=== PATIENT | female | born 1995 | race Caucasian/White ===

== ENCOUNTER 2024-02-28 10:29 | Emergency (ER) | payer MEDICAID, SELFPAY ==
[2024-02-28 10:55] VITALS: BP 128/85; PULSE 99; RESP 19; TEMP 37; O2SAT 98; BMI 32.9
--- NOTE | 2024-02-28 10:58 | XR_ITS ---
Examination: CT brain head without contrast. 2-D sagittal coronal reconstructions Date and time of exam:February 28, 2024 1105 hours INDICATIONS: Syncopal episode beginning 2 days ago followed by head pain CTDI: vol (mGy):46.3 DLP: (mGycm):1029 Technique: Multiple CT axial sections of the brain have been obtained, 5 mm slice thickness. Contrast has not been administered. 2-D sagittal, coronal reconstructions have been obtained Low dose protocols were performed. One or more of the following dose reduction techniques were used; automated exposure control, adjustment of the mA and/or KV according to patient size, use of iterative reconstruction technique. Findings: No significant ventricular enlargement. Intra-axial or extra-axial hemorrhage density is not seen. No mass effect or midline shift Basal cisterns are not remarkable. Fourth ventricle is midline. Cranial vault intact. Impression: Negative for acute hemorrhage, mass effect or midline shift
--- NOTE | 2024-02-28 12:26 | EDNOTE_ITS ---
ED Headache RME/HPI General Chief Complaint: Headache Stated Complaint: Headache from head injury Time Seen by Provider: 02/28/24 10:32 Arrival date/time: 02/28/24 10:29 28-year-old female presents emergency department complaints of fall while in the shower 2 days ago patient reports headache and reports no nausea or vomiting no weakness no chest pain or shortness of breath Limitations: no limitations Related Data Previous Rx's ?Medication ?Instructions ?Recorded ibuprofen 600 mg tablet 600 mg PO Q6H #30 tabs 02/28/24 Allergies Allergy/AdvReac Type Severity Reaction Status Date / Time No Known Allergies Allergy Verified 02/28/24 10:34 Review of Systems Review of Systems Systems Reviewed: All systems reviewed, normal except as documented Constitutional Constitutional: Reports system reviewed and no additional complaints, except as documented, Denies fever(s) and Reports headache(s) Eyes Eyes: Reports system reviewed and no additional complaints, except as documented and Denies blurry vision ENT Ears, Nose, Mouth, and Throat: Reports system reviewed and no additional complaints, except as documented, Reports headache(s), Denies nasal congestion and Denies nasal discharge Cardiovascular Cardiovascular: Reports system reviewed and no additional complaints, except as documented, Denies chest pain and Denies dyspnea Respiratory Respiratory: Reports system reviewed and no additional complaints, except as documented, Denies chest congestion, Denies cough and Denies dyspnea Gastrointestinal Gastrointestinal: Reports system reviewed and no additional complaints, except as documented and Denies abdominal pain Integumentary/Breasts Skin/Breast: Reports system reviewed and no additional complaints, except as documented and Denies rash Neurologic Neurologic: Reports system reviewed and no additional complaints, except as documented, Reports as per HPI and Reports headache(s) Past Medical History Past Medical History NEUROLOGIC: Negative Neurological Disorders CARDIAC: Negative Cardiac Disorders ED Exam General Limitations: Present no limitations General appearance: Present alert and in no apparent distress Head Head exam: Present atraumatic Eye Eye exam: Present normal appearance, PERRL and EOMI ENT ENT exam: Present normal exam, normal oropharynx and mucous membranes moist Neck Neck exam: Present normal inspection, full ROM and trachea midline Chest Chest inspection: Present normal inspection and symmetric chest wall rise Respiratory Respiratory exam: Present normal lung sounds bilaterally Cardiovascular Cardiovascular exam: Present regular rate, normal rhythm and normal heart sounds Abdominal Exam Abdominal exam: Present soft and normal bowel sounds Extremities Exam Extremities exam: Present normal inspection and full ROM Back Exam Back exam: Present normal inspection and full ROM Neurological Exam Neurological exam: Present alert, oriented X3, CN II-XII intact, normal gait and reflexes normal; Absent motor sensory deficit Psychiatric Psychiatric exam: Present normal affect and normal mood Skin Skin exam: Present warm, dry, intact and normal color Course Quality Measures none Orders Category Date Time Status CT head/brain wo con Stat Exams 02/28/24 10:58 Completed Vital Signs Vital signs: Vital Signs Temperature 98.6 F 02/28/24 10:55 Pulse Rate 99 02/28/24 10:55 Respiratory Rate 19 02/28/24 10:55 Blood Pressure 128/85 H 02/28/24 10:55 Pulse Oximetry (%) 98 02/28/24 10:55 Oxygen Delivery Method Room Air 02/28/24 10:55 O2 saturation 98% room air within normal limits Headache MDM Narrative MDM Narrative:: 28-year-old female presents emergency department complaints of fall while in the shower 2 days ago patient reports headache and reports no nausea or vomiting no weakness no chest pain or shortness of breath On exam patient well-appearing patient does not appear ill or toxic in no acute distress CT scan of the head obtained no acute emergent findings noted Patient discharged home in no distress to follow-up with primary care doctor in the next 24 to 48 hours and for any worsening symptoms to return to the ER immediately Patient data External records reviewed:: [facility] previous records Clinical information provided by:: patient Social determinants that could affect healthcare access:: none Patient has the following chronic illnesses:: None How is presenting disease/condition affected by chronic disease/condition?: no chronic disease Evaluation data The following diagnostics were reviewed and interpreted by me:: radiology exam(s) Lab and/or radiology exams considered but not ordered:: Radiology obtain Interpretation Summary: Reviewed by me Medications / Prescriptions Medications or Prescriptions considered but not ordered:: Given Medication administrations:: Given Consultations Consultation(s) initiated? (list below): No Diagnosis Differential diagnosis headache: migraine and tension headache Most likely diagnosis given after review of the tests above:: Headache Admission Indicated Admission indicated?: not indicated Admission Request Was there a request for admission?: No Disposition Plan Disposition Plan: Discharge Discharge Attestation Discharge Attestation: The patient and all family members were given an opportunity to ask questions and understood the discharge instructions. Discharge instructions specifically effects, indications for sooner follow up or return to the emergency department, and the expected course of current diagnosis. Patient condition: Stable Discharge Plan Plan Patient Disposition: HOME (Self Care) Disposition Comment: Stable Prescriptions/Referrals Prescriptions/Med Rec: New ibuprofen 600 mg tablet 600 mg PO Q6H Qty: 30 0RF Referrals: Kirsty Haley FNP [Primary Care Provider] - 02/29/24 Problem List Clinical Impression: Headache Patient/Caregiver Discharge Instructions Education Materials: Self-Care for Headaches Additional Instructions: Please follow up with your primary care doctor in the next 24-48hrs for any worsening symptoms return here immediately Print Language: Serbian Stand Alone Forms: Rhiannon Award Info., Work/School Release, Patient Portal Info Letter INDER/SHAHEEN Supervising Physician INDER/SHAHEEN Supervising Physician: Dr Roberts
== END 2024-02-28 12:49 | disposition home or self-care (01) ==
PROVIDERS: Emergency Provider Emergency Medicine; PCP Registered Nurse Community Health
DX: S09.90XA Unspecified injury of head, initial encounter (principal); W18.2XXA Fall in (into) shower or empty bathtub, initial encounter; Y93.E1 Activity, personal bathing and showering
CPT/HCPCS: 70450; 99284

== ENCOUNTER 2025-02-26 20:01 | Emergency (ER) | payer MEDICAID, SELFPAY ==
[2025-02-26 20:03] VITALS: BMI 31.6
[2025-02-26 20:17] VITALS: BP 118/75; PULSE 82; RESP 20; TEMP 36.6; O2SAT 100
--- NOTE | 2025-02-26 20:37 | PD.EDRME ---
Rapid Medical Screening Exam RME Arrival date/time: 02/26/25 20:01 29F with history of marijuana use presents to ED with 2 days of N/V (possibly bloody) and epigastric pain. Patient denies dysuria and diarrhea. Chief Complaint: Nausea/Vomiting/Diarrhea Vital signs: Vital Signs Temperature 97.8 F 02/26/25 20:17 Pulse Rate 82 02/26/25 20:17 Respiratory Rate 20 02/26/25 20:17 Blood Pressure 118/75 02/26/25 20:17 Pulse Oximetry (%) 100 02/26/25 20:17 Oxygen Delivery Method Room Air 02/26/25 20:17 Exam: Appears tired. No ab tenderness. Clinical Impression: Gastritis vs stomach ulcer vs hyperemesis vs vs Ashley-Renteria
[2025-02-26] MEDS: METOCLOPRAMIDE INJ 5 MG/ML VIAL 2 ML 10 MG IM (20:41)
[2025-02-26 21:33] LABS: Basophils # (Auto) 0.0 Thou/mm3 (0.0-0.2); Basophils % (Auto) 0 % (0-2.5); Eosinophils # (Auto) 0.0 Thou/mm3 (0.0-0.5); Eosinophils % (Auto) 0 % (0-10); Hematocrit 44.4 % (36.0-46.0); Hemoglobin 15.1 g/dL (12.0-16.0); Immature Granulocytes Auto 0.12 Thou/mm3 (0.00-0.00); Lymphocytes # (Auto) 1.6 Thou/mm3 (1.0-4.8); Lymphocytes % (Auto) 10 % (10-50); Mean Corpuscular HGB Conc 34.0 g/dl (31.0-37.0); Mean Corpuscular Hemoglobin 29.3 pg (25.0-35.0); Mean Corpuscular Volume 86 fL (80-100); Monocytes # (Auto) 0.8 Thou/mm3 (0.0-0.8); Monocytes % (Auto) 4 % (0-12); Neutrophils # (Auto) 14.5 Thou/mm3 (1.8-7.7); Neutrophils % (Auto) 85 % (37-80); Nucleated Red Blood Cell # 0.00 Thou/mm3 (0.00-0.00); Nucleated Red Blood Cell % 0 /100 WBC (0); Platelet Count 432 Thou/mm3 (140-440); RDW Standard Deviation 40.6 fL (36.4-46.3); Red Blood Count 5.16 Miln/mm3 (4.00-5.20); White Blood Count 17.0 Thou/mm3 (3.6-11.0)
[2025-02-26 21:52] LABS: Alanine Aminotransferase 14 U/L (10-49); Albumin, Serum 5.7 gm/dL (3.5-5.0); Albumin/Globulin Ratio 1.7 (1.2-2.2); Alcohol, Blood Medical < 3.0 mg/dL (0-10.0); Alkaline Phosphatase 84 U/L (46-116); Anion Gap 16 (7-16); Aspartate Amino Transferase 18 U/L (0-34); BUN/Creatinine Ratio 23 Ratio (12-20); Bilirubin,Total 0.5 mg/dL (0.3-1.2); Blood Urea Nitrogen 14 mg/dL (9-23); Calcium 10.3 mg/dL (8.3-10.6); Calcium (Corrected) 10.3 mg/dL (8.5-10.1); Carbon Dioxide 23.2 mMol/L (20.0-31.0); Chloride 100 mMol/L (98-107); Creatinine (Component) 0.6 mg/dL (0.6-1.3); Estimated Creatinine Clearance 147.3 mL/min (>60); Globulin 3.3 gm/dL (2.3-3.5); Glucose 109 mg/dL (74-106); Lipase 27 U/L (12-53); Osmolality,Calculated 279 (275-295); Potassium 3.9 mMol/L (3.4-5.1); Sodium 139 mMol/L (136-145); Total Protein 9.0 gm/dL (5.7-8.2); eGFR > 60 See Note
--- NOTE | 2025-02-26 22:23 | PD.EDNV ---
Nausea/Vomit./Diarrhea-RME/HPI General Chief complaint: Nausea/Vomiting/Diarrhea Stated complaint: VOMITING X30 HOURS, SOB, HEART POUNDING, FEVER Arrival date/time: 02/26/25 20:01 RME / HPI RME / HPI Narrative: 02/26/25 20:01 29F with history of marijuana use presents to ED with 2 days of N/V (possibly bloody) and epigastric pain. Patient denies dysuria and diarrhea. Dr. Nolen?s Main ED Evaluation: 29yo female who had a flu-like illness within the last several weeks with resolution now presenting with N/V x 24-36 hours. Patient noted blood streaks and coffee-ground appearance with noted diarrhea, fever, chills approx. 90 minutes after eating restaurant food. PMH HLD, no DM or HTN. Social history unremarkable. NKA. Related Data Previous Rx's ?Medication ?Instructions ?Recorded ibuprofen 600 mg tablet 600 mg PO Q6H #30 tabs 02/28/24 famotidine 20 mg tablet (Pepcid) 20 mg PO QDAY #30 tabs 02/27/25 promethazine 12.5 mg rectal 12.5 mg MS Q6H PRN nausea and 02/27/25 suppository vomiting #12 ea promethazine 12.5 mg tablet 12.5 mg PO TID PRN nausea and 02/27/25 vomiting #14 tabs Allergies Allergy/AdvReac Type Severity Reaction Status Date / Time No Known Allergies Allergy Verified 02/26/25 20:02 Review of Systems Review of Systems Systems Reviewed: All systems reviewed, normal except as documented Past Medical History Past Medical History NEUROLOGIC: Negative Neurological Disorders CARDIAC: Negative Cardiac Disorders or Congestive Heart Failure RESPIRATORY: Negative Chronic Obstructive Pulmonary Disease (COPD) GENITOURINARY: Negative Renal Disease ENDOCRINE: Negative Diabetes Mellitus Type 1 or Diabetes Mellitus Type 2 Social History SMOKING STATUS: Never smoker ED Exam Narrative Physical exam: GENERAL APPEARANCE: alert and oriented x 4, well-developed, well-nourished, reports overall improvement after antiemetic, no acute distress VITALS: All vitals were reviewed and the pulse ox is 100% on room air, which is normal according to my interpretation. HEENT: Normocephalic, atraumatic; pupils equal, round, reactive to light; EOMI; mucous membranes pink, moist; oropharynx clear NECK: Supple LUNGS: CTABL; no wheezes, no rales, no rhonchi HEART: Regular rate, regular rhythm; normal S1, S2; no murmurs ABDOMEN: non distended; normal BS; soft, mild epigastric and RUQ tenderness, no guarding or peritoneal findings BACK: no CVA tenderness EXTREMITIES: atraumatic; no edema NEUROLOGIC: awake; alert and oriented x4; cranial nerves II-XII grossly intact; no focal sensory or motor deficits PSYCHIATRIC: appropriate mood and affect SKIN: warm, dry, normal color; no rashes Course Quality Measures none Orders Category Date Time Status Alcohol, Blood Medical Stat Lab 02/26/25 21:00 Completed CBC Stat Lab 02/26/25 21:00 Completed CBC Stat Lab 02/26/25 23:54 Completed CMP [Comprehensive Metabolic Panel] Stat Lab 02/26/25 21:00 Completed Drug Screen,Urine Stat Lab 02/27/25 00:07 Completed HCG Qualitative,Urine Stat Lab 02/27/25 00:07 Completed Lipase Stat Lab 02/26/25 21:00 Completed Urinalysis, C/S if Indicated Stat Lab 02/27/25 00:07 Completed Urine Culture Stat Lab 02/27/25 00:07 Received Metoclopramide Inj [Reglan Inj] Med 02/26/25 20:36 Discontinued 10 mg IM X1 ONE Pantoprazole Inj [Protonix Inj] Med 02/27/25 02:01 Discontinued 40 mg IVP X1 ONE Prochlorperazine Inj [Compazine Inj] Med 02/27/25 02:01 Discontinued 5 mg IV X1 ONE Sodium Chloride 0.9% 1000 ml [Ns] 1,000 ml Med 02/27/25 02:01 Discontinued IV 999 mls/hr Sodium Chloride 0.9% 1000 ml [Ns] 1,000 ml Med 02/27/25 02:02 Discontinued IV 999 mls/hr Vital Signs Vital signs: Vital Signs Temperature 97.8 F 02/26/25 20:17 Pulse Rate 82 02/26/25 20:17 Respiratory Rate 20 02/26/25 20:17 Blood Pressure 118/75 02/26/25 20:17 Pulse Oximetry (%) 100 02/26/25 20:17 Oxygen Delivery Method Room Air 02/26/25 20:17 Nausea/Vomiting/Diarrhea MDM Narrative [facility] Narrative:: Scribe Attestation: 02/26/25 - I, Jaylyn Avila am scribing for and in the presence of Dr. Nolen. 29yo female who had a flu-like illness within the last several weeks with resolution now presenting with N/V x 24-36 hours. Patient noted blood streaks and coffee-ground appearance with noted diarrhea, fever, chills approx. 90 minutes after eating restaurant food. Please see PE findings. Lab markers demonstrated elevated WBC count of 17, mild hemoconcentration with Hgb 15, slight left shift without bandemia. Chemistries are unremarkable. Noted elevated protein. Alcohol level undetected. Patient treated with antiemetic with marked overall clinical improvement and reports mild residual nausea. Likely viral gastroenteritis vs staph food poisoning with transient GI hemorrhage. Will repeat CBC and if patient remains stable, will likely treat symptomatically and add PPI. Patient hydrated with saline and treated with antiemetics and PPI with marked improvement of overall clinical condition. Will place on antiemetics, maintain of clear liquid diet for 24 hours, and close follow-up anticipated. Patient data External records reviewed:: [facility] previous records (Per chart review, patient was seen here on 02/28/24 for a headache.) Clinical information provided by:: patient Social determinants that could affect healthcare access:: none Patient has the following chronic illnesses:: none How is presenting disease/condition affected by chronic disease/condition?: no chronic disease Evaluation data The following diagnostics were reviewed and interpreted by me:: lab results Lab and/or radiology exams considered but not ordered:: none Interpretation Summary: See [facility] Medications / Prescriptions Medications / Prescriptions considered but not ordered:: none Medication administrations:: Medication Administration History Discontinued Medications Sodium Chloride (Ns) 1,000 mls @ 999 mls/hr IV .Q1H1M ONE Stop: 02/27/25 03:01 Last Infusion: 02/27/25 04:11 Dose: Infused Documented By: Admin: 02/27/25 02:55 Dose: 999 mls/hr Documented By: SE Sodium Chloride (Ns) 1,000 mls @ 999 mls/hr IV .Q1H1M ONE Stop: 02/27/25 03:02 Last Admin: 02/27/25 04:11 Dose: Not Given Documented By: Non-Admin Reason: Cancelled by Provider Metoclopramide HCl (Metoclopramide Inj 5 Mg/Ml Vial 2 Ml) 10 mg IM X1 ONE; Protocol Stop: 02/26/25 20:37 Last Admin: 02/26/25 20:41 Dose: 10 mg Documented By: Pantoprazole Sodium (Pantoprazole Inj 40 Mg Vial) 40 mg IVP X1 ONE Stop: 02/27/25 02:02 Last Admin: 02/27/25 02:55 Dose: 40 mg Documented By: SE Prochlorperazine Edisylate (Prochlorperazine Inj 5 Mg/Ml Vial 2 Ml) 5 mg IV X1 ONE; Protocol Stop: 02/27/25 02:02 Last Admin: 02/27/25 02:56 Dose: 5 mg Documented By: SE see above Consultations Consultation(s) initiated? (list below): No Diagnosis Nausea Differential Diagnosis: food poisoning, gastroenteritis, drug-induced nausea and vomiting, dehydration and other (electrolyte abnormality) Most likely diagnosis given after review of the tests above:: see clinical impression below Admission Indicated Admission indicated?: not indicated Admission Request Was there a request for admission?: No Disposition Plan Disposition Plan: Discharge Discharge Attestation Discharge Attestation: The patient and all family members were given an opportunity to ask questions and understood the discharge instructions. Discharge instructions specifically effects, indications for sooner follow up or return to the emergency department, and the expected course of current diagnosis. Patient condition: Stable Discharge Plan Plan Patient Disposition: HOME (Self Care) Discharge Disposition comment: Stable Prescriptions/Referrals Prescriptions/Med Rec: New promethazine 12.5 mg tablet 12.5 mg PO TID PRN (Reason: nausea and vomiting) Qty: 14 0RF famotidine [Pepcid] 20 mg tablet 20 mg PO QDAY Qty: 30 0RF promethazine 12.5 mg suppository 12.5 mg MS Q6H PRN (Reason: nausea and vomiting) Qty: 12 0RF No Action ibuprofen 600 mg tablet 600 mg PO Q6H Qty: 30 0RF Referrals: Armando Herring[facility]MD [Primary Care Provider, Family Practice] - In 1 week Problem List Clinical Impression: Gastroenteritis, Dehydration, Hematemesis/vomiting blood Impression comment: Acute gastroenteritis dehydration/hematemesis-resolved Patient/Caregiver Discharge Instructions Discharge Activity: activity as tolerated Diet Instructions: Clear liquid diet x 24 to 48 hours and advance as tolerated. Education Materials: ED Gastroenteritis, Noninfectious Additional Instructions: Clear liquid diet x 24 hours medication as directed. Follow-up with primary care doctor for consideration of upper GI evaluation and return for fever escalating abdominal pain recurrent bloody emesis or worsening symptoms. Print Language: Chadian Stand Alone Forms: Rhiannon Award Info., Work/School Release, Patient Portal Info Letter
[2025-02-27 00:14] LABS: Collection Type, Urine Clean Catch
[2025-02-27 00:20] LABS: HCG Qualitative,Urine Positive
[2025-02-27 00:21] LABS: Bacteria,Urine 1+; Bilirubin,Urine Negative (Negative); Blood,Urine Negative (Negative); Clarity,Urine Turbid (Clear/Hazy); Color,Urine Yellow (Lt Yel-Yel); Glucose, Urine Negative (Negative); Ketones,Urine 4+ (Negative); Leukocyte Esterase,Urine Negative (Negative); Nitrite,Urine Negative (Negative); PH,Urine 6.0 (5.0-7.0); Protein,Urine 2+ (Neg - Trace); RBC,Urine 9 /hpf (0-3); Specific Gravity,Urine 1.037 (1.001-1.035); Squamous Epithelial Cell,Urine 4 /hpf (0-5); Urobilinogen,Urine Negative mg/dL (0.0-1.0); WBC,Urine 10 /hpf (0-5)
[2025-02-27 00:22] LABS: Culture Indicated,Urine Yes
[2025-02-27 00:33] LABS: Amphetamine/Methamp Scrn,U Negative (Negative); Barbiturate Screen,Urine Negative (Negative); Benzodiazepines Screen,Urine Negative (Negative); Benzoylecgonine Screen, Ur Negative (Negative); Fentanyl Screen,Urine Negative (Negative); Opiate Screen,Urine Negative (Negative); THC Screen,Urine Positive (Negative)
[2025-02-27 01:15] LABS: Basophils # (Auto) 0.0 Thou/mm3 (0.0-0.2); Basophils % (Auto) 0 % (0-2.5); Eosinophils # (Auto) 0.0 Thou/mm3 (0.0-0.5); Eosinophils % (Auto) 0 % (0-10); Hematocrit 42.9 % (36.0-46.0); Hemoglobin 14.6 g/dL (12.0-16.0); Immature Granulocytes Auto 0.11 Thou/mm3 (0.00-0.00); Lymphocytes # (Auto) 2.0 Thou/mm3 (1.0-4.8); Lymphocytes % (Auto) 13 % (10-50); Mean Corpuscular HGB Conc 34.0 g/dl (31.0-37.0); Mean Corpuscular Hemoglobin 29.3 pg (25.0-35.0); Mean Corpuscular Volume 86 fL (80-100); Monocytes # (Auto) 1.1 Thou/mm3 (0.0-0.8); Monocytes % (Auto) 7 % (0-12); Neutrophils # (Auto) 12.8 Thou/mm3 (1.8-7.7); Neutrophils % (Auto) 80 % (37-80); Nucleated Red Blood Cell # 0.00 Thou/mm3 (0.00-0.00); Nucleated Red Blood Cell % 0 /100 WBC (0); Platelet Count 451 Thou/mm3 (140-440); RDW Standard Deviation 39.8 fL (36.4-46.3); Red Blood Count 4.99 Miln/mm3 (4.00-5.20); White Blood Count 16.1 Thou/mm3 (3.6-11.0)
[2025-02-27] MEDS: SODIUM CHLORIDE 0.9% 1000 ML 1,000 ML 999 ML IV (02:55)
[2025-02-27] MEDS: PROCHLORPERAZINE INJ 5 MG/ML VIAL 2 ML IV (02:56)
[2025-02-27 04:17] VITALS: BP 118/78; PULSE 79; O2SAT 98
== END 2025-02-27 04:24 | disposition home or self-care (01) ==
PROVIDERS: Physician Assistant; Emergency Provider Emergency Medicine; PCP Family Medicine
DX: K52.9 Noninfective gastroenteritis and colitis, unspecified (principal); E86.0 Dehydration
CPT/HCPCS: 36415; 80053; 80307; 80320; 81001; 81025; 83690; 85025; 87086; 96361; 96372; 96374; 99283; J0780; J2470; J2765; J7030; G0480